=== PATIENT | male | born 1965 | race Caucasian/White ===

== ENCOUNTER 2019-03-15 04:42 | Emergency (ER) | payer OTHER ==
[~2019-03-15] VITALS: Ht 182.9 cm; Wt 106.6 kg
[~2019-03-15 04:42] MED LIST: ALBU90OI INH; AZIT500 PO; BUPR150T2; CLAR500 PO; HYDGUAL120; LEVASTATIN; LEVSOD150; LOSA50 PO; LOSHYD; METPHE18ER; OSEL75CA; OXYACE5T PO; PANT40; RXOXYACE PO
[2019-03-15] MEDS ORDERED: LISI20 PO (04:57)
[2019-03-15] MEDS ORDERED: LEVSOD175 PO (04:58)
[2019-03-15] MEDS ORDERED: HYDCHL25 PO (04:58)
[2019-03-15] MEDS ORDERED: Zocor20 MG PO (04:58)
[2019-03-15] MEDS ORDERED: ERYT1OIN RIGHTEYE (06:50)
[2019-03-15] MEDS ORDERED: ACULAR5 ML TOP (06:50)
== END 2019-03-15 07:03 | disposition home or self-care (01) ==
LOC: ER 04:42
DX: T15.01XA Foreign body in cornea, right eye, initial encounter (principal); Z88.0 Allergy status to penicillin; Z88.2 Allergy status to sulfonamides; Z79.899 Other long term (current) drug therapy
CPT/HCPCS: 99283

== ENCOUNTER 2025-05-24 07:55 | Day surgery (SDC) | payer OTHER ==
[~2025-05-24] VITALS: Ht 182.9 cm; Wt 93.9 kg
[2025-05-24] VITALS (9 sets, daily range): BP systolic 102–176; BP diastolic 57–96
[~2025-05-24 07:55] MED LIST changes: +ACULAR5 ML TOP; +AMLO5 PO; +Aspir 8181 MG PO; +CeFAZolin Sodium 2,000 MG VIAL ONE; +CeFAZolin Sodium 2,000 MG in NS 100 ML IV SCH; +ERYT1OIN RIGHTEYE; +HYDCHL25 PO; +LEVSOD175 PO; +NITR.4SL SL; +ZESTRIL40 M1 PO; +Zocor20 MG PO
[2025-05-24] MEDS ORDERED: Bupivacaine 0.5% HCl 5 MG/ML 30MLVIAL ONE (08:04)
--- NOTE | 2025-05-24 09:04 | NUR ---
PRE OP NOTE PT [id number], BREATHING RA, CALM. Ambulatory in Day Surgery Patient confirms NPO status and agrees with scheduled surgery. Pre-Op teaching done. Pt verbalizes understanding. Patient States Post-Procedure ride home has been arranged.
[2025-05-24] MEDS ORDERED: Ondansetron HCl 2 MG / ML 2ML Vial ONE (09:24)
[2025-05-24] MEDS ORDERED: Rocuronium Bromide 10 MG/ML 5ML Injection IV ONE (09:24)
[2025-05-24] MEDS ORDERED: Dexamethasone Sod Phos 10 MG/ML 1ML VIAL ONE (09:24)
[2025-05-24] MEDS ORDERED: FentaNYL Citrate 50 MCG/ML 2 ML Injection ONE (09:27)
[2025-05-24] MEDS ORDERED: Lidocaine HCl 4% 5 ML SDA ONE (09:31)
[2025-05-24] MEDS ORDERED: Sugammadex Sodium 200 MG/2ML SDV (100 MG/ML) ONE (09:51)
[2025-05-24] MEDS ORDERED: Ketorolac Tromethamine 30mg Vial ONE (09:51)
[2025-05-24] MEDS ORDERED: Metoclopramide HCl 5MG / ML 2ML Vial IV PRN (10:15)
[2025-05-24] MEDS ORDERED: FentaNYL Citrate 50 MCG/ML 2 ML Injection IV PRN ×2 (10:15→10:20)
[2025-05-24] MEDS ORDERED: Ondansetron HCl 2 MG / ML 2ML Vial IV PRN (10:15)
[2025-05-24] MEDS ORDERED: Albuterol 2.5 MG/3 ML VIAL INH PRN ×2 (10:20→10:25)
[2025-05-24] MEDS ORDERED: HYDROmorphone HCl/Pf 1MG SYR IV PRN (10:20)
[2025-05-24] MEDS ORDERED: Prochlorperazine Edisylate 10 mg Vial IV PRN (10:20)
[2025-05-24] MEDS ORDERED: ePHEDrine Sulfate 50 MG/ML 1ML Injection ONE (10:22)
--- NOTE | 2025-05-24 11:57 | NUR ---
Discharge instructions reviewed with patient. Patient verbalizes understanding. Copy given to patient to take home. Dressings x2 c/d/i. Prescriptions given to . Patient States Post-Procedure ride home has been arranged. Discharged via wheelchair to private car for ride home.
== END 2025-05-24 11:55 | disposition home or self-care (01) ==
LOC: ORSCMMR 07:55 → ORD 09:30 → ORSCMMR 09:30
DX: L72.3 Sebaceous cyst (principal); J44.9 Chronic obstructive pulmonary disease, unspecified; I10 Essential (primary) hypertension; E78.5 Hyperlipidemia, unspecified; E03.9 Hypothyroidism, unspecified; E11.9 Type 2 diabetes mellitus without complications; F17.200 Nicotine dependence, unspecified, uncomplicated; Z79.82 Long term (current) use of aspirin; Z79.899 Other long term (current) drug therapy
CPT/HCPCS: 82947; 88304; J0690; J1100; J1885; J2003; J2405; J2704; J3010; J7120